=== PATIENT | female | born 1990 | race African-American/Black ===

== ENCOUNTER 2021-12-23 16:11 | Emergency (ER) | payer SELFPAY ==
[2021-12-23 17:05] LABS: Urine Blood Negative (Negative); Urine Glucose Negative (Negative); Urine Protein Negative (Negative)
[2021-12-23 17:11] LABS: Absolute Lymphocytes (CBC) 2.7 K/uL (0.7-4.9); Lymphocytes % 49.2 % (15.3-44.8); MPV 7.7 fL (7.6-11.3); RBC Red Blood Cell Count 4.32 M/uL (3.86-4.86)
[2021-12-23] MEDS ORDERED: NA CHLORIDE 0.9% 1,000 ML ONE (17:21)
--- NOTE | 2021-12-23 17:22 | RAD REPORT ---
EXAM DESCRIPTION: CT - Head Brain Wo Cont - 12/23/2021 5:11 pm CLINICAL HISTORY: Headache COMPARISON: None TECHNIQUE: Computed axial tomography of the head was obtained. IV contrast was not requested. All CT scans are performed using dose optimization technique as appropriate and may include automated exposure control or mA/KV adjustment according to patient size. FINDINGS: An intracranial bleed is not seen . The ventricles are normal in caliber. No extra-axial fluid collection is noted. Fluid within the sinuses/ mastoids is not seen. IMPRESSION: No acute intracranial abnormality is seen. If patient's symptoms persist MRI of the bra in would be recommended.
[2021-12-23 17:25] LABS: Potassium 3.7 mmol/L (3.5-5.1)
[2021-12-23 17:27] LABS: Barbiturates NEGATIVE (NEGATIVE); Benzodiazepines NEGATIVE (NEGATIVE); Cocaine POSITIVE (NEGATIVE); METHAMPHETAM POSITIVE (NEGATIVE); Methadone NEGATIVE (NEGATIVE); Opiates NEGATIVE (NEGATIVE); Phencyclidine NEGATIVE (NEGATIVE); THC Cannibis NEGATIVE (NEGATIVE)
[2021-12-23 17:58] LABS: Urine Bacteria 20-50 /HPF (<20); Urine RBC <5 /HPF (NONE SEEN)
--- NOTE | 2021-12-23 18:11 | EDPHYS ---
Physician Documentation [facility] Name: Sasha Thomas Age: 31 yrs Sex: Female : 1990 Arrival Date: 12/23/2021 Time: 16:12 Bed 27 Private MD: ED Physician Sherman Villalpando HPI: 12/23 16:36 This 31 yrs old Black Female presents to ER via EMS with complaints of high blood rn pressure. 16:36 Pt states uncle called 911 after she helped him wash a car, she felt "funny" and rn noticed hands were red, uncle checked her blood pressure and was elevated. Pt states feels better and cannot describe exactly what she was feeling. Reports did drink ETOH today but states "only a little". No fever. NO head injury. NO focal neuro complaint. She is not sure if she is . Denies drug use.. Onset: The symptoms/episode began/occurred today. Severity of symptoms: At their worst the symptoms were mild in the emergency department the symptoms have improved. The patient has not experienced similar symptoms in the past. The patient has not recently seen a physician. 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 - Social history:: Smoking status: Patient reports the use of cigarette tobacco products, smokes one pack cigarettes per day. Patient uses alcohol, street drugs, marijuana, Methamphetamine (Meth) pt reports drinking beer 6 packs yesterday, 1 can today, admits of marijuana and meth use, states she was about to smoke cig before coming to ER. - Family history:: not pertinent. - Hospitalizations: : No recent hospitalization is reported. ROS: 16:36 Constitutional: Negative for fever, chills, and weight loss, Eyes: Negative for injury, rn pain, redness, and discharge, Neck: Negative for injury, pain, and swelling, Cardiovascular: Negative for chest pain, palpitations, and edema, Respiratory: Negative for shortness of breath, cough, wheezing, and pleuritic chest pain, Abdomen/GI: Negative for abdominal pain, nausea, vomiting, diarrhea, and constipation, Back: Negative for injury and pain, : Negative for injury, bleeding, discharge, and swelling, MS/Extremity: Negative for injury and deformity, Skin: Negative for injury, rash, and discoloration, Neuro: Negative for weakness, numbness, tingling, and seizure. Exam: 16:36 Constitutional: This is a well developed, well nourished patient who is awake, alert, rn and in no acute distress. Slow speech and slurring her words Head/Face: Normocephalic, atraumatic. Eyes: Periorbital areas with no swelling, redness, or edema. ENT: dry MM Neck: Trachea midline, no thyromegaly or masses palpated, and no cervical lymphadenopathy. Supple, full range of motion without nuchal rigidity, or vertebral point tenderness. No Meningismus. Cardiovascular: Regular rate and rhythm. No pulse deficits. Respiratory: No increased work of breathing, no retractions or nasal flaring. Abdomen/GI: Soft, non-tender Skin: Warm, dry MS/ Extremity: Pulses equal, no cyanosis. Neuro: Awake and alert, GCS 15, oriented to person, place, time, and situation. Cranial nerves II-XII grossly intact. Motor strength 5/5 in all extremities. Sensory grossly intact. Vital Signs: 16:12 BP 121 / 94; Pulse 87; Resp 14; Temp 98.5(TE); Pulse Ox 99% on R/A; Height 5 ft. 5 in. ss (165.10 cm); Pain 0/10; 17:25 BP 121 / 90; Pulse 83; Resp 17; Pulse Ox 100% ; Pain 0/10; eo2 19:09 BP 101 / 84; Pulse 86; Resp 15; Pulse Ox 100% ; Pain 0/10; eo2 MDM: 16:14 Patient medically screened. rn 18:09 Differential Diagnosis UTI, ETOH, drug use, HTN, dehydration. Data reviewed: vital rn signs, nurses notes, lab test result(s), EKG, radiologic studies, CT scan, and as a result, I will discharge patient. Counseling: I had a detailed discussion with the patient and/or guardian regarding: the historical points, exam findings, and any diagnostic results supporting the discharge/admit diagnosis, lab results, radiology results, the need for outpatient follow up, to return to the emergency department if symptoms worsen or persist or if there are any questions or concerns that arise at home. Response to treatment: the patient's symptoms have mildly improved after treatment, and as a result, I will discharge patient. Special discussion: I discussed with the patient/guardian in detail that at this point there is no indication for admission to the hospital. It is understood, however, that if the symptoms persist or worsen the patient needs to return immediately for re-evaluation. 18:16 ED course: Pt reports did use cocaine and methamphetamine, BP stable, no other acute rn findings. Fluids almost done. Will dc home with return precautions. Still denies any focal symptoms or focal pain. Denies chest pain/sob/abd pain. Preg neg. . 12/23 16:22 Order name: CBC with Diff; Complete Time: 17:46 rn 12/23 16:22 Order name: Basic Metabolic Panel; Complete Time: 17:46 rn 12/23 16:22 Order name: Urine Microscopic Only; Complete Time: 18:02 rn 12/23 16:22 Order name: Urine Drug Screen; Complete Time: 17:46 rn 12/23 16:22 Order name: ETOH Level; Complete Time: 17:46 rn 12/23 17:05 Order name: Urine Dipstick-Ancillary; Complete Time: 17:46 EDIL 12/23 16:22 Order name: IV Start; Complete Time: 17:06 rn 12/23 16:22 Order name: Urine Dipstick-Ancillary (obtain specimen); Complete Time: 17:07 rn 12/23 16:22 Order name: EKG; Complete Time: 16:23 rn 12/23 16:26 Order name: CT Head Brain wo Cont; Complete Time: 17:46 rn 12/23 17:07 Order name: Urine --Ancillary (enter results) sp 12/23 17:07 Order name: Urine --Ancillary; Complete Time: 17:46 EDIL 12/23 18:00 Order name: Urine Culture EDIL 12/23 16:22 Order name: Urine Test (obtain specimen); Complete Time: 17:07 rn 12/23 16:22 Order name: EKG - Nurse/Tech; Complete Time: 17:42 rn 12/23 16:23 Order name: Cardiac monitoring; Complete Time: 17:07 rn Administered Medications: 17:20 Drug: NS 0.9% 1000 ml Route: IV; Rate: 1000 ml; Site: right antecubital; eo2 18:30 Follow up: Response: No adverse reaction; IV Status: Completed infusion; IV Intake: eo2 1000ml Disposition Summary: 12/23/21 18:10 Discharge Ordered Location: Home rn Problem: new rn Symptoms: have improved rn Condition: Stable rn Diagnosis - Cocaine use, unspecified with cocaine-induced mood disorder rn - Adverse effect of amphetamines rn - Dehydration rn Followup: rn - With: Private Physician - When: As needed - Reason: Recheck today's complaints, Re-evaluation by your physician Discharge Instructions: - Discharge Summary Sheet rn - Cocaine Use Disorder rn - Dehydration, Adult rn - Methamphetamines Use Disorder rn Forms: - Medication Reconciliation Form rn - Thank You Letter rn - Antibiotic wound treatment rn - Prescription Opioid Use rn Signatures: Dispatcher [employer] Sherman Ghosh MD MD rn Owoade, Eunice, RN RN eo2
--- NOTE | 2021-12-23 18:11 | ER ---
Nurse's Notes [facility] Name: Sasha Thomas Age: 31 yrs Sex: Female : 1990 Arrival Date: 12/23/2021 Time: 16:12 Bed 27 Private MD: Diagnosis: Cocaine use, unspecified with cocaine-induced mood disorder;Adverse effect of amphetamines;Dehydration Presentation: 12/23 16:27 Chief complaint: Patient states: she helped her uncle wash his car, started feeling eo2 sick, uncle checked her BP and said it was too high EMS states: called out for HBP, upon arrival, pt found with AMS, incoherent, contricted pupils- pt's uncle called EMS. Coronavirus screen: Vaccine status: Patient reports being unvaccinated. Ebola Screen: Patient negative for fever greater than or equal to 101.5 degrees Fahrenheit, and additional compatible Ebola Virus Disease symptoms Patient denies exposure to infectious person. Patient denies travel to an Ebola-affected area in the 21 days before illness onset. Initial Sepsis Screen: Does the patient meet any 2 criteria? Altered Mental Status. Does the patient have a suspected source of infection? No. Patient's initial sepsis screen is negative. Risk Assessment: Do you want to hurt yourself or someone else? Patient reports no desire to harm self or others. Onset of symptoms is unknown. 16:27 Method Of Arrival: EMS: [facility] eo2 16:27 Acuity: KATHY 2 eo2 Triage Assessment: 16:29 General: Appears in no apparent distress. Behavior is calm, cooperative. Pain: Denies eo2 pain. Neuro: No deficits noted. Level of Consciousness is awake, alert, confused, Oriented to person, place, Disoriented to time, states this is 2020, named Simon as president. Speech is slurred, Pupils are constricted. Cardiovascular: Denies chest pain, shortness of breath, Heart tones S1 S2 Capillary refill < 3 seconds. Respiratory: Airway is patent Trachea midline Respiratory effort is even, unlabored, Respiratory pattern is regular, symmetrical, Breath sounds are clear bilaterally. Denies cough, shortness of breath. GI: No deficits noted. No signs and/or symptoms were reported involving the gastrointestinal system. 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 - Social history:: Smoking status: Patient reports the use of cigarette tobacco products, smokes one pack cigarettes per day. Patient uses alcohol, street drugs, marijuana, Methamphetamine (Meth) pt reports drinking beer 6 packs yesterday, 1 can today, admits of marijuana and meth use, states she was about to smoke cig before coming to ER. - Family history:: not pertinent. - Hospitalizations: : No recent hospitalization is reported. Screenin:37 Abuse screen: Denies threats or abuse. Denies injuries from another. Nutritional eo2 screening: No deficits noted. Tuberculosis screening: No symptoms or risk factors identified. Fall Risk None identified. Assessment: 16:37 Reassessment: see triage. eo2 18:55 Reassessment: Called pt's uncle for her ride home. eo2 Vital Signs: 16:12 BP 121 / 94; Pulse 87; Resp 14; Temp 98.5(TE); Pulse Ox 99% on R/A; Height 5 ft. 5 in. ss (165.10 cm); Pain 0/10; 17:25 BP 121 / 90; Pulse 83; Resp 17; Pulse Ox 100% ; Pain 0/10; eo2 19:09 BP 101 / 84; Pulse 86; Resp 15; Pulse Ox 100% ; Pain 0/10; eo2 ED Course: 16:12 Patient arrived in ED. ds1 16:14 Sherman Villalpando MD is Attending Physician. rn 16:27 Kenna Silva RN is Primary Nurse. eo2 16:29 Triage completed. eo2 16:29 Arm band placed on. eo2 16:37 Patient has correct armband on for positive identification. eo2 16:37 No provider procedures requiring assistance completed. eo2 16:48 Inserted saline lock: 22 gauge in right antecubital area, using aseptic technique. eo2 Blood collected. 17:05 ETOH Level Sent. eo2 17:05 Urine Drug Screen Sent. eo2 17:06 Urine Microscopic Only Sent. eo2 17:06 Basic Metabolic Panel Sent. eo2 17:06 CBC with Diff Sent. eo2 17:07 residential monitor on. Pulse ox on. NIBP on. Door closed. Noise minimized. Warm blanket eo2 given. 17:10 CT Head Brain wo Cont In Process Unspecified. EDMS 17:42 Urine --Ancillary (enter results) Sent. eo2 17:42 Urine Microscopic Only Sent. eo2 19:03 Primary Nurse role handed off by Kenna Silva RN mw2 19:09 IV discontinued, intact. eo2 Administered Medications: 17:20 Drug: NS 0.9% 1000 ml Route: IV; Rate: 1000 ml; Site: right antecubital; eo2 18:30 Follow up: Response: No adverse reaction; IV Status: Completed infusion; IV Intake: eo2 1000ml Intake: 18:30 IV: 1000ml; Total: 1000ml. eo2 Outcome: 18:10 Discharge ordered by . rn 19:09 Discharged to home with family. eo2 19:09 Condition: stable 19:09 Discharge instructions given to patient, Instructed on discharge instructions, follow up and referral plans. Demonstrated understanding of instructions, follow-up care. 19:15 Patient left the ED. eo2 Signatures: Dispatcher [employer] [facility] MuñozSherley ds1 Sherman Villalpando MD MD rn Smirch, Shelby, RN RN ss [place], MyKena mw2 Kenna Silva RN RN eo2
[2021-12-23 20:31] VITALS: TEMP 98.5
[2021-12-23 20:33] VITALS: O2SAT 100
[2021-12-23 20:34] VITALS: BP 101/84
--- NOTE | 2021-12-24 11:15 | EKG ---
Test Date: 2021-12-23 Test Time: 17:33:39 [employer] Room Attendant: EO MEASUREMENT RESULTS: Intervals: Rate: 80 NH: 126 QRSD: 70 QT: 386 QTc: 445 [place]: P: 23 NH: 126 QRS: 67 T: 32 INTERPRETIVE STATEMENTS: Normal sinus rhythm Normal ECG Compared to ECG 05/13/2016 09:38:30 Sinus tachycardia no longer present Electronically Signed On 12-24-21 11:13:44 NETWORKER by Inder Fitzpatrick
== END 2021-12-23 19:15 | disposition home or self-care (01) ==
LOC: ER 16:11
DX: F14.94 Cocaine use, unspecified with cocaine-induced mood disorder (principal); T43.625A Adverse effect of amphetamines, initial encounter; Y92.009 Unspecified place in unspecified non-institutional (private) residence as the place of occurrence of the external cause; E86.0 Dehydration
CPT/HCPCS: 36415; 70450; 80048; 80307; 80320; 81003; 81015; 81025; 85025; 87086; 87088; 93005; 96360; 99284; J7030

== ENCOUNTER 2022-04-12 20:55 | Emergency (ER) | payer SELFPAY ==
[2022-04-12 21:47] LABS: Absolute Lymphocytes (CBC) 1.8 K/uL (0.7-4.9); Lymphocytes % 27.3 % (15.3-44.8); MPV 7.6 fL (7.6-11.3); RBC Red Blood Cell Count 4.29 M/uL (3.86-4.86)
[2022-04-12 21:58] LABS: Protime INR 1.32
[2022-04-12 22:06] LABS: ALT/SGPT 30 U/L (12-78); AST/SGOT 34 U/L (15-37); Albumin 4.9 g/dL (3.4-5.0); Alkaline Phosphatase 90 U/L (45-117); BUN Blood Urea Nitrogen 11 mg/dL (7-18); Bicarbonate 25 mmol/L (21-32); Bilirubin Direct 0.5 mg/dL (0-0.2); Bilirubin Total 2.8 mg/dL (0.2-1.0); Creatine Phosphokinase 757 U/L (26-192); Glomerular Filtration Rate 61 ml/min (=/>90); Glucose Level 96 mg/dL (74-106); Potassium 3.3 mmol/L (3.5-5.1); Protein, Total 8.8 g/dL (6.4-8.2); Sodium Level 138 mmol/L (136-145)
[2022-04-12 22:48] LABS: Urine Blood Negative (Negative); Urine Glucose Negative (Negative); Urine Protein 1+ (Negative); Urine Specific Gravity >=1.030 (1.005-1.030)
[2022-04-12 23:04] LABS: Barbiturates NEGATIVE (NEGATIVE); Benzodiazepines NEGATIVE (NEGATIVE); Cocaine NEGATIVE (NEGATIVE); METHAMPHETAM POSITIVE (NEGATIVE); Methadone NEGATIVE (NEGATIVE); Opiates NEGATIVE (NEGATIVE); Phencyclidine NEGATIVE (NEGATIVE); THC Cannibis NEGATIVE (NEGATIVE)
[2022-04-12] MEDS ORDERED: LORazepam 2 MG/ML VIAL ONE (23:19)
--- NOTE | 2022-04-12 23:23 | EDPHYS ---
Physician Documentation [facility] Name: Sasha Thomas Age: 31 yrs Sex: Female : 1990 Arrival Date: 04/12/2022 Time: 21:00 Bed 17 Private MD: ED Physician Sherman Villalpando HPI: 04/12 21:11 This 31 yrs old Black Female presents to ER via EMS with complaints of right knee and ms3 foot pain. 21:12 The patient presents to the emergency department with psychosis. Onset: The ms3 symptoms/episode began/occurred at an unknown time. Past psychiatric history: Prior diagnosis: unknown. The patient presents with a puncture wound, from a nail. The complaints affect the right foot. Context: The problem was sustained outdoors, resulted from a penetrating injury, by a nail. Onset: The symptoms/episode began/occurred today. Modifying factors: The symptoms are alleviated by nothing, the symptoms are aggravated by nothing. Associated signs and symptoms: The patient has no apparent associated signs or symptoms. Associated signs and symptoms: The patient has no apparent associated signs or symptoms. Severity of symptoms: At their worst the symptoms were mild, in the emergency department the symptoms are unchanged. 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 - Social history:: Smoking status: Patient reports the use of cigarette tobacco products, unknown amount Patient uses alcohol, on a daily basis. street drugs. ROS: 21:12 Constitutional: Negative for fever, and chills. Neck: Negative for injury, pain, and ms3 swelling, Cardiovascular: Negative for chest pain, and palpitations. Respiratory: Negative for shortness of breath, cough, wheezing, and pleuritic chest pain, Abdomen/GI: Negative for abdominal pain, nausea, vomiting, diarrhea, and constipation, Neuro: Negative for headache, weakness, numbness, tingling. 21:12 MS/extremity: Positive for puncture. 21:12 All other systems are negative. Exam: 21:12 Constitutional: This is a well developed, well nourished patient who is awake, alert, ms3 and in no acute distress. Head/Face: Normocephalic, atraumatic. Neck: Trachea midline, no cervical lymphadenopathy. Supple, full range of motion without nuchal rigidity, or vertebral point tenderness. No Meningismus. Chest/axilla: Normal chest wall appearance and motion. Nontender with no deformity. Cardiovascular: Regular rate and rhythm with a normal S1 and S2. No gallops, murmurs, or rubs. Normal PMI, no JVD. No pulse deficits. Respiratory: Lungs have equal breath sounds bilaterally, clear to auscultation and percussion. No rales, rhonchi or wheezes noted. No increased work of breathing, no retractions or nasal flaring. Abdomen/GI: Soft, non-tender, with normal bowel sounds. No distension or tympany. No guarding or rebound. No evidence of tenderness throughout. 21:12 Skin: injury, puncture(s), of the right heel. 21:12 Psych: Behavior/mood is cooperative, Affect is flat, Oriented to person, place, time, Patient has no thoughts/intents to harm self or others. Judgement / Insight is impaired. Delusions/hallucinations are present and described as Patient is cussing to people not in her room. 21:48 ECG was reviewed by the Attending Physician. ms3 Vital Signs: 21:00 BP 146 / 102; Pulse 97; Resp 16; Temp 98.9(TE); Pulse Ox 99% on R/A; Weight 68.04 kg jb4 (R); Height 5 ft. 6 in. (167.64 cm) (R); Pain 5/10; 04/13 06:46 BP 142 / 104; Pulse 69; Resp 18; Temp 97.7(TE); Pulse Ox 100% on R/A; ll3 12:20 BP 139 / 99; Pulse 72; Resp 18; Pulse Ox 100% on R/A; ld1 04/12 21:00 Body Mass Index 24.21 (68.04 kg, 167.64 cm) jb4 MDM: 04/12 21:09 Patient medically screened. ms3 04/13 06:04 Differential diagnosis: Foreign body vs Drug abuse acute psychotic break. Data ms3 reviewed: vital signs, nurses notes, lab test result(s), radiologic studies. Data interpreted: Pulse oximetry: on room air is 99 %. Interpretation: normal. Counseling: I had a detailed discussion with the patient and/or guardian regarding:. ED course: [facility] came to ED to evaluate patient and patient was unable to cooperate 2/2 Ativan administration during shift. Will consult [facility] when patient awakes.. 07:14 Transition of care: After a detail discussion of the patient's case, care is ms3 transferred to Sherman Villalpando MD. 15:05 ED course: Pt much more alert, no agitation, resting comfortably, admits to "smoking rn something", + methamphetamine in urine drug screen, reevaluated and denies suicidal or homicidal ideations. Will dc home with pcp f/u, return precautions given, will dc home with abx for foot. . 04/12 21:10 Order name: Acetaminophen; Complete Time: 23:12 ms3 04/12 21:10 Order name: BMP; Complete Time: 23:12 ms3 04/12 21:10 Order name: CBC with Diff; Complete Time: 23:12 ms3 04/12 21:10 Order name: Ethanol; Complete Time: 23:12 ms3 04/12 21:10 Order name: Hepatic Function; Complete Time: 23:12 ms3 04/12 21:10 Order name: Protime (+inr); Complete Time: 23:12 ms3 04/12 21:10 Order name: Ptt, Activated; Complete Time: 23:12 ms3 04/12 21:10 Order name: Salicylate; Complete Time: 23:12 ms3 04/12 21:10 Order name: Urine Drug Screen; Complete Time: 23:12 ms3 04/12 21:10 Order name: CK; Complete Time: 23:12 ms3 04/12 21:17 Order name: Foot Right 3 View XRAY ms3 04/12 22:48 Order name: Urine Dipstick-Ancillary; Complete Time: 23:12 EDMS 04/12 22:59 Order name: Urine --Ancillary (enter results); Complete Time: 01:32 04/12 23:43 Order name: SARS-COV-2 RT PCR (Document "Date of Onset" if Symptomatic); Complete Time: 01:32 04/12 21:10 Order name: EKG; Complete Time: 21:11 ms3 04/12 21:10 Order name: EKG - Nurse/Tech; Complete Time: 21:56 ms3 04/12 21:10 Order name: IV Saline Lock; Complete Time: 21:42 ms3 04/12 21:10 Order name: Labs collected and sent; Complete Time: 21:42 ms3 04/12 21:10 Order name: O2 Per Protocol; Complete Time: 21:42 ms3 04/12 21:10 Order name: O2 Sat Monitoring; Complete Time: 21:42 ms3 04/12 21:10 Order name: Suicide Screening ([place]); Complete Time: 21:42 ms3 04/12 21:10 Order name: Urine Dipstick-Ancillary (obtain specimen); Complete Time: 22:47 ms3 04/12 21:17 Order name: Knee Right 3 View XRAY ms3 04/13 07:45 Order name: Diet Finger Food; Complete Time: 07:45 bd 04/13 11:43 Order name: Diet Finger Food; Complete Time: 11:43 ww EC/05 21:48 Rate is 87 beats/min. Rhythm is regular. QRS [place] is Normal. QRS interval is normal. ms3 Clinical impression: Normal ECG. Interpreted by me. Administered Medications: 23:15 Drug: Ativan (LORazepam) 2 mg Route: IVP; Site: right antecubital; jb4 23:25 Drug: LevOfloxacin 500 mg Route: PO; jb4 23:25 Drug: Potassium Chloride 40 mEq Route: PO; jb4 Disposition Summary: 04/13/22 15:08 Discharge Ordered Location: Home rn Problem: new(04/13/22 15:08) rn Symptoms: have improved(04/13/22 15:08) rn Condition: Stable(04/13/22 15:08) rn Diagnosis - Puncture wound without foreign body, right foot rn - UTI/ Urinary tract infection, site not specified(04/13/22 15:08) rn Followup: rn - With: Private Physician - When: 2 - 3 days - Reason: Recheck today's complaints, Re-evaluation by your physician Discharge Instructions: - Discharge Summary Sheet rn - Puncture Wound rn - Urinary Tract Infection, Adult rn Forms: - Medication Reconciliation Form rn - Thank You Letter rn - Antibiotic appeals rn - Prescription Opioid Use rn Prescriptions: - levofloxacin 500 mg Oral Tablet - take 1 tablet by ORAL route once daily for 7 days; 7 tablet; Refills: 0, rn Product Selection Permitted Signatures: Dispatcher [employer] EDMS Sherman Villalpando MD MD rn Bryson, James RN RN jb4 Rm Dewitt DO DO ms3 Corrections: (The following items were deleted from the chart) 04/13 15: 15:05 ED course: Pt much more alert, no agitation, resting comfortably, admits to rn "smoking something", + . rn 15:04/12 23:22 . ms3 rn 04/13 15:04/12 23:22 Psych Facility ms3 rn 04/13 15:04/12 23:22 Higher level of care ms3 rn 04/13 15:04/12 23:22 Stable ms3 rn 04/13 15:04/12 23:22 new ms3 rn 04/13 15:07 04/12 23:22 are unchanged ms3 rn 04/13 15:07 04/12 23:22 amphetamine abuse ms3 rn 04/13 15:07 04/12 23:22 puncture wound right foot ms3 rn 04/13 15:07 04/12 23:22 Pain in right knee ms3 rn 04/13 15:07 04/12 23:22 UTI/ Urinary tract infection, site not specified ms3 rn
--- NOTE | 2022-04-12 23:23 | ER ---
Nurse's Notes [facility] Name: Sasha Thomas Age: 31 yrs Sex: Female : 1990 Arrival Date: 04/12/2022 Time: 21:00 Bed 17 Private MD: Diagnosis: Puncture wound without foreign body, right foot;UTI/ Urinary tract infection, site not specified Presentation: 04/12 21:00 Chief complaint: EMS states: We were called by a bystander that saw her limping and jb4 running up the road. She is A\\T\\Ox4 but she is unable to give straight answers. reports stepping on a nail and now having right posterior knee pain. BGL 108. Pt reports alcohol use and smoking "something" when asked if she consumed any street drugs. Coronavirus screen: At this time, the client does not indicate any symptoms associated with coronavirus-19. Ebola Screen: No symptoms or risks identified at this time. Initial Sepsis Screen: Does the patient meet any 2 criteria? No. Patient's initial sepsis screen is negative. Does the patient have a suspected source of infection? No. Patient's initial sepsis screen is negative. Risk Assessment: Do you want to hurt yourself or someone else? Patient reports no desire to harm self or others. Onset of symptoms was April 12, 2022. Transition of care: patient was not received from another setting of care. 21:00 Method Of Arrival: EMS: [facility] jb4 21:00 Acuity: KATHY 2 bb STABLE HAND: 04/13 06:47 LMP 04/11/2022 ll3 Historical: - Allergies: 04/12 21:05 No Known Allergies; jb4 - Home Meds: 21:05 None [Active]; jb4 - PMHx: 21:05 Asthma; jb4 - PSHx: 21:05 hernia repair; jb4 - Immunization history:: Adult Immunizations unknown. - Social history:: Smoking status: Patient reports the use of cigarette tobacco products, unknown amount Patient uses alcohol, on a daily basis. street drugs. Screenin:05 Abuse screen: Denies threats or abuse. Nutritional screening: No deficits noted. jb4 Tuberculosis screening: No symptoms or risk factors identified. Fall Risk None identified. Assessment: 21:05 General: Appears in no apparent distress. uncomfortable, Behavior is calm, cooperative, jb4 appropriate for age, restless. Pain: Complains of pain in right foot and posterior aspect of right knee Pain does not radiate. Pain currently is 5 out of 10 on a pain scale. Neuro: Level of Consciousness is awake, alert, obeys commands, Oriented to person, place, situation. Cardiovascular: Patient's skin is warm and dry. Respiratory: Airway is patent Respiratory effort is even, unlabored, Respiratory pattern is regular, symmetrical. GI: No signs and/or symptoms were reported involving the gastrointestinal system. : No signs and/or symptoms were reported regarding the genitourinary system. EENT: No signs and/or symptoms were reported regarding the EENT system. Derm: Skin is intact, Skin is dry, Skin is normal, Skin temperature is warm. Musculoskeletal: Circulation, motion, and sensation intact. Range of motion: intact in all extremities. 21:10 Reassessment: Pt is talking to people that are not there, responding inappropriately to jb4 questions. Is intermittently A\\T\\Ox2-3. Is hearing voices. 22:30 Reassessment: Patient appears in no apparent distress at this time. No changes from jb4 previously documented assessment. Patient and/or family updated on plan of care and expected duration. Pain level reassessed. 04/13 02:06 Reassessment: [facility] contacted for pt evaluation. 02:42 Reassessment: Pt is resting quietly in be with eyes closed, respirations are even and jb4 unlabored with no s/s of pain or distress noted. 06:31 Reassessment: No changes from previously documented assessment. Patient and/or family ll3 updated on plan of care and expected duration. Pain level reassessed. Patient is alert, oriented x 3, equal unlabored respirations, skin warm/dry/pink. 07:45 General: Appears in no apparent distress. Behavior is calm, quiet. Neuro: Level of ww Consciousness is awake, alert, obeys commands. Respiratory: Airway is patent Respiratory effort is even, unlabored, Respiratory pattern is regular, symmetrical. 09:30 Reassessment: Patient appears in no apparent distress at this time. No changes from ww previously documented assessment. Patient and/or family updated on plan of care and expected duration. Pain level reassessed. Patient is alert, oriented x 3, equal unlabored respirations, skin warm/dry/pink. walked to bedside toilet. 10:00 Reassessment: Patient appears in no apparent distress at this time. No changes from ww previously documented assessment. Patient and/or family updated on plan of care and expected duration. Pain level reassessed. Dr. Villalpando at bedside with patient. 11:44 Reassessment: Patient appears in no apparent distress at this time. No changes from ww previously documented assessment. Patient and/or family updated on plan of care and expected duration. Pain level reassessed. patient sleeping in no apparent distress. 15:38 Reassessment: Patient appears in no apparent distress at this time. No changes from tw2 previously documented assessment. Patient and/or family updated on plan of care and expected duration. Pain level reassessed. Patient is alert, oriented x 3, equal unlabored respirations, skin warm/dry/pink. Psych: 04/12 22:06 [place] Suicide Severity Screening: In the past month, have you wished you were jb4 or wished you could go to sleep and not wake up? Patient responds "No." "In the past month, have you actually had any thoughts of killing yourself?" Patient responds "no." "In your lifetime, have you ever done anything, started to do anything, or prepared to do anything to end your life?" Patient responds "no.". Subjective: Hallucinations are auditory, visual. Objective: Patient is cooperative, Speech is normal, rambling. Pt reports drug use. 04/13 02:00 Safety Checks: Personal items have been removed. No visitors are present at this time. ll3 02:00 Interventions: Removed personal items and placed in bag. Patient placed in hospital ll3 gown. Vital Signs: 04/12 21:00 BP 146 / 102; Pulse 97; Resp 16; Temp 98.9(TE); Pulse Ox 99% on R/A; Weight 68.04 kg jb4 (R); Height 5 ft. 6 in. (167.64 cm) (R); Pain 5/10; 04/13 06:46 BP 142 / 104; Pulse 69; Resp 18; Temp 97.7(TE); Pulse Ox 100% on R/A; ll3 12:20 BP 139 / 99; Pulse 72; Resp 18; Pulse Ox 100% on R/A; ld1 04/12 21:00 Body Mass Index 24.21 (68.04 kg, 167.64 cm) jb4 ED Course: 04/12 21:00 Patient arrived in ED. jb4 21:05 Triage completed. jb4 21:05 Arm band placed on right wrist. jb4 21:05 Patient has correct armband on for positive identification. Bed in low position. Call jb light in reach. Side rails up X 1. Client placed on continuous cardiac and pulse oximetry monitoring. NIBP monitoring applied. 21:09 Rm Dewitt DO is Attending Physician. ms3 21:25 Initial lab(s) drawn, by [facility], sent to lab. Inserted saline lock: 20 gauge in right jb4 antecubital area, using aseptic technique. Blood collected. 21:26 Sandra Ayala, RN is Primary Nurse. ph 21:26 Kevin Tang, RN is Primary Nurse. jb4 22:31 Foot Right 3 View XRAY In Process Unspecified. EDMS 22:31 Knee Right 3 View XRAY In Process Unspecified. EDMS 04/13 02:06 Contacted [facility] for consult. wm 02:35 Jaxon from [facility] stated his ETA is about an hour away. wm 03:10 Report given to USMAN Alvarez. jb4 03:15 Jaxon with [facility] arrived for consult. wm 03:25 Jaxon stated he was unable to consult due to Pt not being alert or aware of her wm surroundings. Stated he would need to come back when Pt. is alert. 06:11 Called [facility] to cancel consult. wm 07:15 Attending Physician role handed off by Rm Dewitt DO ms3 07:15 Sherman Villalpando MD is Attending Physician. ms3 15:38 No provider procedures requiring assistance completed. IV discontinued, intact, tw2 bleeding controlled, No redness/swelling at site. Pressure dressing applied, by USMAN Sandra. Administered Medications: 04/12 23:15 Drug: Ativan (LORazepam) 2 mg Route: IVP; Site: right antecubital; jb4 23:25 Drug: LevOfloxacin 500 mg Route: PO; jb4 23:25 Drug: Potassium Chloride 40 mEq Route: PO; jb4 Medication: 04/13 15:39 VIS not applicable for this client. tw2 Outcome: 04/12 23:22 ER care complete, transfer ordered by . ms3 04/13 15:08 Discharge ordered by . rn 15:39 Discharged to home ambulatory. tw2 15:39 Condition: stable 15:39 Discharge instructions given to patient, Instructed on discharge instructions, follow up and referral plans. medication usage, Demonstrated understanding of instructions, follow-up care, medications, Prescriptions given X 1. 15:39 Patient left the ED. tw2 Signatures: Dispatcher [employer] EDMS Farhana Griffiths, RN RN bb Sherman Villalpando MD MD rn Hall, Patricia, RN RN Kailee Early RN RN tw2 Kevin Tang RN RN jb4 Rm Dewitt, DO ms3 Jocy Loo RN RN ld1 Roxana Henriquez Lynsea RN RN ll3 Marianna Mays RN RN ww Corrections: (The following items were deleted from the chart) 04/12 22:05 19:30 General: Appears in no apparent distress. uncomfortable, Behavior is calm, jb4 cooperative, appropriate for age, restless, jb4 22: 19:30 Pain: Complains of pain in right foot and posterior aspect of right knee Pain jb4 does not radiate. Pain currently is 5 out of 10 on a pain scale. jb4 22:05 19:30 Neuro: Level of Consciousness is awake, alert, obeys commands, Oriented to jb4 person, place, time, situation, jb4 22:05 19:30 Cardiovascular: Patient's skin is warm and dry. jb4 jb4 22:05 19:30 Respiratory: Airway is patent Respiratory effort is even, unlabored, Respiratory jb4 pattern is regular, symmetrical, jb4 :05 19:30 GI: No signs and/or symptoms were reported involving the gastrointestinal system. jb4 jb4 :05 19:30 : No signs and/or symptoms were reported regarding the genitourinary system. jb4jb4 22:05 19:30 EENT: No signs and/or symptoms were reported regarding the EENT system. jb4 jb4 22:05 19:30 Derm: Skin is intact, Skin is dry, Skin is normal, Skin temperature is warm jb4 jb4 22:05 19:30 Musculoskeletal: Circulation, motion, and sensation intact. Range of motion: jb4 intact in all extremities, jb4 22:10 21:00 Acuity: KATHY 3 jb4 bb
[2022-04-12] MEDS ORDERED: POTASSIUM CL SA 10 MEQ TAB PO ONE (23:24)
[2022-04-12] MEDS ORDERED: levoFLOXacin 500 MG TAB ONE (23:25)
--- NOTE | 2022-04-13 13:20 | EKG ---
Test Date: 2022-04-12 Test Time: 21:48:49 Comedian: NAHOMY MEASUREMENT RESULTS: Intervals: Rate: 87 [place]: 142 QRSD: 78 QT: 378 QTc: 454 [place]: P: 64 [place]: 142 QRS: 68 T: 56 INTERPRETIVE STATEMENTS: Normal sinus rhythm Normal ECG Compared to ECG 12/23/2021 17:33:39 No significant changes Electronically Signed On 04-13-22 13:18:58 CDT by Mike Paz
[2022-04-13 16:02] VITALS: TEMP 97.7; O2SAT 100
[2022-04-13 16:06] VITALS: BP 139/99
--- NOTE | 2022-04-14 13:45 | RAD REPORT ---
EXAM DESCRIPTION: Knee Right 3 View CLINICAL HISTORY: 31 years Female PAIN COMPARISON: None TECHNIQUE: 3 images of the left knee were obtained. FINDINGS: No acute fractures seen. Normal bony mineralization. No erosive or lytic lesions seen. Suspected small joint effusion. IMPRESSION: No acute fracture or dislocation seen. Electronically signed by: Nevaeh Crawley MD 04/12/2022 10:48 PM CDT Due to temporary technical issues with the PACS/Fluency reporting system, reports are being signed by the in house radiologists without review as a courtesy to insure prompt reporting. The interpreting radiologist is fully responsible for the content of the report.
--- NOTE | 2022-04-14 13:46 | RAD REPORT ---
EXAM DESCRIPTION: RIGHT FOOT, 3 VIEWS, XR. CLINICAL HISTORY: Puncture wound COMPARISON: None TECHNIQUE: AP, lateral and oblique views of the right hip. FINDINGS: No fracture. Alignment is anatomic. Joint spaces are maintained. Normal bone mineralizatio n. Normal soft tissues. IMPRESSION: Negative right foot. Electronically signed by: Capri Muniz DO 04/12/2022 10:48 PM CDT Due to temporary technical issues with the PACS/Fluency reporting system, reports are being signed by the in house radiologists without review as a courtesy to insure prompt reporting. The interpreting radiologist is fully responsible for the content of the report.
== END 2022-04-13 15:39 | disposition home or self-care (01) ==
LOC: ER 20:55
DX: S91.331A Puncture wound without foreign body, right foot, initial encounter (principal); N39.0 Urinary tract infection, site not specified; Z72.0 Tobacco use
CPT/HCPCS: 36415; 80048; 80076; 80307; 80320; 80329; 81003; 81025; 82550; 85025; 85610; 85730; 93005; 96374; 99285; U0003

== ENCOUNTER 2023-10-09 15:27 | Emergency (ER) | payer SELFPAY ==
[2023-10-09 16:44] LABS: SARS-CoV-2 Antigen Rapid Res Negative (Negative)
[2023-10-09 17:21] LABS: Specific Gravity 1.022 (1.005-1.030); Urine Bacteria 20-50 /HPF (<20); Urine Bilirubin NEGATIVE (Negative); Urine Blood Negative (Negative); Urine Clarity Clear (Clear); Urine Color Light-Yellow (Yellow); Urine Glucose NEGATIVE (Negative); Urine Mucus 3+ /HPF (None Seen); Urine Protein NEGATIVE (Negative); Urine RBC <5 /HPF (None Seen); Urine Urobilinogen 1+ (Normal)
[2023-10-09 17:23] LABS: Specific Gravity 1.022 (1.005-1.030)
--- NOTE | 2023-10-09 17:25 | ER ---
Nurse's Notes [facility] Name: Sasha Thomas Age: 33 yrs Sex: Female : 1990 Arrival Date: 10/09/2023 Time: 15:27 Bed 12 Private MD: Diagnosis: Unspecified sexually transmitted disease;Acute upper respiratory infection, unspecified Presentation: 10/09 15:42 Chief complaint: Patient states: Cough for 1 day. Burning with urination, concerned ld1 about STD. Coronavirus screen: At this time, the client does not indicate any symptoms associated with coronavirus-19. Ebola Screen: No symptoms or risks identified at this time. Initial Sepsis Screen: Does the patient meet any 2 criteria? No. Patient's initial sepsis screen is negative. Does the patient have a suspected source of infection? No. Patient's initial sepsis screen is negative. Risk Assessment: Do you want to hurt yourself or someone else? Patient reports no desire to harm self or others. Onset of symptoms was October 09, 2023. 15:42 Method Of Arrival: Ambulatory ld1 15:42 Acuity: KATHY 4 ld1 Triage Assessment: 15:42 General: Appears in no apparent distress. comfortable, Behavior is calm, cooperative, ld1 appropriate for age. Pain: Denies pain. EENT: No signs and/or symptoms were reported regarding the EENT system. Neuro: Level of Consciousness is awake, alert, obeys commands, Oriented to person, place, time, situation. Respiratory: Airway is patent Respiratory effort is even, unlabored. GI: Abdomen is flat, non-distended. : Reports burning with urination. 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 - Social history:: Smoking status: Patient reports the use of cigarette tobacco products, Patient/guardian denies using alcohol. Screenin:14 [facility] ED Fall Risk Assessment (Adult) History of falling in the last 3 months, cm10 including since admission No falls in past 3 months (0 pts) Confusion or Disorientation No (0 pts) Intoxicated or Sedated No (0 pts) Impaired Gait No (0 pts) Mobility Assist Device Used No (0 pt) Altered Elimination No (0 pt) Score/Fall Risk Level 0 - 2 = Low Risk Oriented to surroundings, Maintained a safe environment, Hourly rounding (assess needs \T\ fall precautionary measures) done. Abuse screen: Denies threats or abuse. Denies injuries from another. Nutritional screening: No deficits noted. Tuberculosis screening: No symptoms or risk factors identified. Assessment: 18:14 Reassessment: Patient is alert, oriented x 3, equal unlabored respirations, skin cm10 warm/dry/pink. Patient states feeling better. Patient states symptoms have improved. Vital Signs: 15:42 BP 130 / 99; Pulse 66; Resp 18; Temp 98.5(TE); Pulse Ox 96% on R/A; Weight 58.97 kg; ld1 Height 5 ft. 5 in. ; Pain 0/10; 15:42 Body Mass Index 21.63 (58.97 kg, 165.1 cm) ld1 15:42 Pain Scale: Adult ld1 ED Course: 15:28 Patient arrived in ED. rg4 15:39 [facility] jh7 15:39 Don Bermudez MD is Attending Physician. jh7 15:42 Arm band placed on right wrist. ld1 15:43 Triage completed. ld1 16:17 Test, Urine Sent. ld1 16:17 Flu Sent. ld1 16:17 SARS RAPID Sent. ld1 16:17 Urinalysis W/Microscopic Sent. ld1 17:51 Celine Ugarte, RN is Primary Nurse. cm10 18:14 Patient has correct armband on for positive identification. Provided Education on: ER cm10 process and procedures.. 18:15 No provider procedures requiring assistance completed. Patient did not have IV access cm10 during this emergency room visit. Administered Medications: 17:56 Drug: Rocephin (cefTRIAXone) IM 500 mg IM once Route: IM; Site: left vastus lateralis; cm10 18:14 Follow up: Response: No adverse reaction cm10 Medication: 18:14 VIS not applicable for this client. cm10 Outcome: 17:24 Discharge ordered by . jh7 18:15 Discharged to home ambulatory, cm10 18:15 Condition: good 18:15 Discharge instructions given to patient, Instructed on discharge instructions, follow up and referral plans. medication usage, safe sex practices, Demonstrated understanding of instructions, follow-up care, medications, Prescriptions given X 2, 18:16 Patient left the ED. cm10 Signatures: Niesha Colbert rg4 Jocy Dewitt RN RN ld1 Perla Cruz, PRODUCT LEAD PRODUCT LEAD 7 Celine Ugarte RN RN cm10
--- NOTE | 2023-10-09 17:25 | EDPHYS ---
Physician Documentation [facility] Name: Sasha Thomas Age: 33 yrs Sex: Female : 1990 Arrival Date: 10/09/2023 Time: 15:27 Bed 12 Private MD: ED Physician Don Bermudez HPI: 10/09 15:42 This 33 yrs old Black Female presents to ER via Ambulatory with complaints of Flu jh7 Symptoms. 15:42 Onset: The symptoms/episode began/occurred 3 day(s) ago. Associated signs and symptoms: jh7 Pertinent positives: congestion, cough, Pertinent negatives: fever. Patient complains of cough and congestion for the past 3 days. She also reports vaginal discharge and is concerned for STI. No significant medical problems. No known allergies.. 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 - Social history:: Smoking status: Patient reports the use of cigarette tobacco products, Patient/guardian denies using alcohol. ROS: 15:42 Constitutional: Negative for fever, chills, and weight loss, Eyes: Negative for injury, jh7 pain, redness, and discharge, ENT: Negative for injury, pain, and discharge, Neck: Negative for injury, pain, and swelling, Cardiovascular: Negative for chest pain, palpitations, and edema, Abdomen/GI: Negative for abdominal pain, nausea, vomiting, diarrhea, and constipation, Back: Negative for injury and pain, MS/Extremity: Negative for injury and deformity, Skin: Negative for injury, rash, and discoloration, Neuro: Negative for headache, weakness, numbness, tingling, and seizure, 15:42 Respiratory: Positive for cough, 15:42 : Positive for vaginal discharge, Negative for urinary symptoms, burning with urination, 15:42 All other systems are negative, Exam: 15:42 Constitutional: This is a well developed, well nourished patient who is awake, alert, jh7 and in no acute distress. Head/Face: Normocephalic, atraumatic. ENT: Nares patent. No nasal discharge, no septal abnormalities noted. Tympanic membranes are normal and external auditory canals are clear. Oropharynx with no redness, swelling, or masses, exudates, or evidence of obstruction, uvula midline. Mucous membranes moist. Neck: Trachea midline, no thyromegaly or masses palpated, and no cervical lymphadenopathy. Supple, full range of motion without nuchal rigidity, or vertebral point tenderness. No Meningismus. Cardiovascular: Regular rate and rhythm with a normal S1 and S2. No gallops, murmurs, or rubs. Normal PMI, no JVD. No pulse deficits. Respiratory: Lungs have equal breath sounds bilaterally, clear to auscultation and percussion. No rales, rhonchi or wheezes noted. No increased work of breathing, no retractions or nasal flaring. Abdomen/GI: Soft, non-tender, with normal bowel sounds. No distension or tympany. No guarding or rebound. No evidence of tenderness throughout. Back: No spinal tenderness. No costovertebral tenderness. Full range of motion. Skin: Warm, dry with normal turgor. Normal color with no rashes, no lesions, and no evidence of cellulitis. Neuro: Awake and alert, GCS 15, oriented to person, place, time, and situation. Normal gait. Vital Signs: 15:42 BP 130 / 99; Pulse 66; Resp 18; Temp 98.5(TE); Pulse Ox 96% on R/A; Weight 58.97 kg; ld1 Height 5 ft. 5 in. ; Pain 0/10; 15:42 Body Mass Index 21.63 (58.97 kg, 165.1 cm) ld1 15:42 Pain Scale: Adult ld1 MDM: 15:39 Patient medically screened. [facility] 17:28 Differential diagnosis: viral Infection, URI, UTI, STI. Data reviewed: vital signs, [facility] nurses notes. I considered the following discharge prescriptions or medication management in the emergency department Medications were administered in the Emergency Department. See MAR. Counseling: I had a detailed discussion with the patient and/or guardian regarding the historical points, exam findings, and any diagnostic results supporting the discharge/admit diagnosis, to return to the emergency department if symptoms worsen or persist or if there are any questions or concerns that arise at home. Special discussion: Agreed to treat the patient for STI and advised PCP follow-up.. 10/09 15:44 Order name: Urinalysis W/Microscopic; Complete Time: 17:23 [facility] 10/09 15:44 Order name: SARS RAPID; Complete Time: 16:58 [facility] 10/09 15:44 Order name: Flu; Complete Time: 16:58 [facility] 10/09 15:44 Order name: Test, Urine; Complete Time: 17:24 [facility] Administered Medications: 17:56 Drug: Rocephin (cefTRIAXone) IM 500 mg IM once Route: IM; Site: left vastus lateralis; cm10 18:14 Follow up: Response: No adverse reaction cm10 Disposition Summary: 10/09/23 17:24 Discharge Ordered Notes: Location: Home [facility] Problem: new [facility] Symptoms: are unchanged [facility] Condition: Stable [facility] Diagnosis - Unspecified sexually transmitted disease [facility] - Acute upper respiratory infection, unspecified [facility] Followup: [facility] - With: Private Physician - When: 2 - 3 days - Reason: Recheck today's complaints Discharge Instructions: - Discharge Summary Sheet [facility] - Upper Respiratory Infection, Adult [facility] - Viral Respiratory Infection [facility] - Preventing Sexually Transmitted Infections, Adult [facility] Forms: - Medication Reconciliation Form [facility] - Thank You Letter [facility] - Antibiotic Education [facility] - Patient Portal Instructions [facility] - Leadership Thank You Letter [facility] Prescriptions: - Tessalon Perles 100 mg Oral Capsule - take 1 capsule ORAL route every 8 hours As needed; 15 capsule; Refills: 0, [facility] Product Selection Permitted - Doxycycline Hyclate 100 mg Oral tablet - take 1 tablet ORAL route every 12 hours for 7 days; 14 tablet; Refills: 0, [facility] Product Selection Permitted Signatures: Dispatcher [employer] EDJocy Reynoso, RN RN ld1 Perla Cruz FNP BILLING DEPARTMENT SUPERVISOR [facility] Celine Ugarte RN RN cm10
[2023-10-09] MEDS ORDERED: CEFTRIAXONE 500 MG/VIAL ONE (18:03)
[2023-10-09] MEDS ORDERED: LIDOCAINE 1% MPF 2 ML AMPULE ONE (18:04)
[2023-10-09 18:42] VITALS: BP 130/99; TEMP 98.5; O2SAT 96
== END 2023-10-09 18:16 | disposition home or self-care (01) ==
LOC: ER 15:27
DX: J06.9 Acute upper respiratory infection, unspecified (principal); A64 Unspecified sexually transmitted disease; Z11.52 Encounter for screening for COVID-19
CPT/HCPCS: 36415; 81001; 81025; 87804; 87811; 96372; 99284